=== PATIENT | male | born 1955 | race Caucasian/White ===

== ENCOUNTER 2020-05-26 09:17 | Outpatient (RCR) | payer BC, SELFPAY ==
[2020-05-26 09:35] VITALS: BP 155/80; PULSE 136; TEMP 36.2
--- NOTE | 2020-05-26 11:55 | HP.PCM_ITS ---
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 He presents today with his sister. They report that they are seeking a second opinion consult for the management of the patient's left ankle ulcer. The patient has a past medical history significant for type 2 diabetes mellitus and hypertension. His primary care provider is Dr. Rudd at [facility]. On January 07, 2020 [facility] for evaluation of left foot infection. 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 His surgery was performed by Dr. Caba (podiatry at [facility]). He was seen by infectious disease (also at [facility]) and was placed on IV antibiotics from January 09, 2020 until February 20, 2020. He has since been seeing Dr. Caba once a month for management of his left ankle ulcer. A wound VAC was initially applied to the left foot and ankle, however the patient did not tolerate this and experienced severe blistering and irritation of the skin. 2 of his 3 left ankle ulcerations have now closed, however a deep, tunneling ulcer of the left ankle persists. He has been receiving [facility] home health care 3 times a week, as well as assistance from his sister. He is receiving twice daily iodoform packing to the left ankle. He reports variable amounts of drainage from the ankle. At times the ankle has large amounts of bloody drainage, and at other times the drainage is mild and serosanguineous. He denies any purulent drainage or malodorous drainage. He denies any fever or chills. He denies any nausea, vomiting, diarrhea or decreased appetite. An ankle x-ray report from April 19, 2020 was reviewed which stated concern for osteomyelitis. The patient reports Dr. Caba had discussed reinitiation of IV antibiotics, but this was to be assessed at his next appointment in June. A culture was collected last week by Dr. Caba; results are not available and patient has not yet received results of culture. The patient states his last antibiotic course was Augmentin, which was last taken on May 15, 2020. Past Medical History Past Medical History: Chronic Problems Chronic osteomyelitis of left ankle with draining sinus (Chronic) Chronic ulcer of left ankle (Chronic) History of gangrene (Chronic) Home Medications: Ambulatory Orders Medication Instructions Recorded Aspirin 81 mg DAILY 05/26/20 Vit C/Ascorb Sod/Multivit-Min 500 mg BID 05/26/20 Review of Systems Constitutional: Denies: Chills, Fever Eyes: Denies: Drainage, Redness HEENT: Denies: Difficulty Hearing Cardiovascular: Denies: Chest Pain, Palpitations Respiratory: Denies: Cough, Shortness of Breath Gastrointestinal: Denies: Diarrhea, Nausea, Vomiting Musculoskeletal: Reports: Joint swelling - Left ankle. Denies: Foot Pain, Joint Tenderness Skin: Reports: Wounds - Left ankle Neurological: Denies: Slurred speech, Focal weakness, Incoordination Hematologic/ Lymphatic: Denies: Petechiae, Purpura - Physical Exam Vital Signs Temp Pulse BP 97.1 F L 136 H 155/80 H 05/26/20 09:35 05/26/20 09:35 05/26/20 09:35 General: Alert, Cooperative, No apparent distress HEENT: Atraumatic, EOMI, Normocephalic Oral: Moist Mucosa Neck: Supple, Trachea Midline Lungs: Clear to auscultation, Normal air movement, No rhonchi, No wheeze, No rales Cardiovascular: Regular Rhythm, Normal S1, Normal S2, No murmurs, Tachycardic - HR 110 on auscultation Abdomen: Bowel Sounds Present, Soft, Non Tender Extremities: No clubbing, No cyanosis, Edema - Circumferential swelling of left ankle, Peripheral Pulses Normal, - - Surgical absence of second and third toes of the left foot. Skin: Ulcer/ Wound - Tunneling ulcer of the left ankle, stage undetermined. There is a small amount of nonodorous, serous drainage from the ulcer. There is periulcer excoriation and swelling; no warmth or tenderness to palpation. Wound Measurements and Assessment - Nurse 1 - General Ulcer Measurement Start: 05/26/20 09:31 Freq: Status: Active Protocol: Activity Type Activity Date Activity User E-Sign Co-Sign Detail Recorded Client Recorded Date Recorded By Document 05/26/20 09:35 GO [id number] 05/26/20 09:59 KR 05/26/20 09:35 Wound Center Nurse 1 [Ulcer Assessment] #1 LEFT ANKLE -Current Size (cm) - Length 1 -Current Size (cm) - Width 1.1 -Current Size (cm) - Depth 2.7 -Total Square Cm 1.1 -Tunneling Position (O'clock) 11 -Tunneling Distance (cm) 4 -Exudate Amt Medium -Exudate Type Serosanguineous -Wound Margin Distinct, Outline Attached -Granulation Amt Medium (34-66%) -Granulation Quality Red -Necrosis Amt Medium (34-66%) -Necrotic Tissue Type Adherent Slough -Texture (Coty-wound Skin Appearance) Assessed, Scarring -Moisture (Coty-wound Skin Appearance No Abnormality, ) Assessed -Color (Coty-wound Skin Appearance) No Abnormality, Assessed -Temperature (Coty-wound Skin No Abnormality Appearance) (Pt Warm) -Tenderness on Palpation (Coty-wound No Skin Appearance) -Ulcer Cleansing Rinsed/ Irrigated with Saline -Foul Odor after Cleansing No -Anesthetic Used 4% Lidocaine Solution,5% Lidocaine Gel [Edema Assessment] -Right Calf (cm) 36 -Right Ankle (cm) 21 -Left Calf (cm) 36 -Left Ankle (cm) 24 - Nurse 3 - General Ulcer D/C NN Start: 05/26/20 09:31 Freq: Status: Active Protocol: Activity Type Activity Date Activity User E-Sign Co-Sign Detail Recorded Client Recorded Date Recorded By Document 05/26/20 11:27 GO [id number] 05/26/20 11:28 KR 05/26/20 11:27 Wound Care Nurse 3 [Wound Dressing] #1 LEFT ANKLE -Ulcer Cleansing Rinsed/ Irrigated with Saline -Foul Odor after Cleansing No -Primary Dressing Applied Other -Other Dressing packing -Primary Dressing Covered/Secured Dry Gauze,Dry with Gauze & Roll Gauze,Secured with Tape Pain Scale: 0-10 Numeric [Pain] -Is Patient Pain Free? Yes WC - Visit Discharge [Visit Discharge Information] -Discharge Condition Stable -Ambulatory Status Wheelchair -Transportation Private Auto -Accompanied by sister Musculoskeletal: No Tenderness to Palpation of Joints or Extremities - Left ankle Psych/Mental Status: Normal Affect, Appropriate Debridement Note Post-Debridement Measurements/Treatment WC - Nurse 3 - General Ulcer D/C NN Start: 05/26/20 09:31 Freq: Status: Active Protocol: Activity Type Activity Date Activity User E-Sign Co-Sign Detail Recorded Client Recorded Date Recorded By Document 05/26/20 11:27 OG [id number] 05/26/20 11:28 GO 05/26/20 11:27 Wound Care Nurse 3 #1 LEFT ANKLE -Ulcer Cleansing Rinsed/ Irrigated with Saline -Foul Odor after Cleansing No -Primary Dressing Applied Other -Other Dressing packing -Primary Dressing Covered/Secured with Dry Gauze,Dry Gauze & Roll Gauze,Secured with Tape Pain Scale: 0-10 Numeric Is Patient Pain Free? Yes WC - Visit Discharge Discharge Condition Stable Ambulatory Status Wheelchair Transportation Private Auto Accompanied by sister No debridement was completed today Assessment/Plan Active Problems Chronic osteomyelitis of left ankle with draining sinus (Chronic) Chronic ulcer of left ankle (Chronic) History of gangrene (Chronic) Assessment: See above Plan: Treatment options were discussed at length today with the patient. These include the followin. The wound healing center can assume management of the patient's left ankle ulcer, ordering supplies and providing superficial debridement to the ulcer opening. Wound care would likely include continuation of iodoform packing or the initiation of a snap VAC. 2. I do feel the patient may benefit from operative debridement of the left ankle, as it is difficult to determine the depth and severity of his left ankle wound, and sharp debridement would not be feasible in the wound healing clinic setting. 3. Initiation of hyperbaric oxygen therapy is also a consideration due to chronic osteomyelitis. The patient may pursue this option regardless of whether or not they choose to continue wound care with the [facility] wound healing center or with Dr. Caba. In any event, the patient's records will be requested from [facility], including his culture results, imaging studies, lab work, and consultations from Dr. Caba and infectious disease. Upon the review of these, I will contact the patient with any further recommendations. I also recommend that the patient keep scheduled follow-up with Dr. Caba for June 2020 to readdress their previous discussion regarding the possible need for IV antibiotics. The patient is unsure of how they would like to proceed at this t chris. They will consider these options and discuss other possibilities with Dr. Caba, and call the wound healing center to schedule a follow-up appointment if desired. Note: [employer] speech recognition java jsf developer software was used to create portions of this document. Sound-alike and misspelled words, as well as other java jsf developer errors may be contained in the documentation. Office Visits / Consults: [id number] OV L4 New
--- NOTE | 2020-06-07 11:31 | WC ---
06/07/20 Spoke with Carolynn from [facility] in regards to the prior authorization of HBO treatments for the patient. I was informed that no prior authorization was required for the codes G0277 or 18267. The reference number on the call was #[id number]
== END 2020-06-11 23:59 ==
LOC: WC 09:17
PROVIDERS: PCP Internal Medicine; Referring Provider Internal Medicine; Visit Provider Nurse Practitioner Family
DX: E11.621 Type 2 diabetes mellitus with foot ulcer (principal); L97.322 Non-pressure chronic ulcer of left ankle with fat layer exposed; M86.472 Chronic osteomyelitis with draining sinus, left ankle and foot; Z86.79 Personal history of other diseases of the circulatory system; I10 Essential (primary) hypertension; E11.69 Type 2 diabetes mellitus with other specified complication; M86.662 Other chronic osteomyelitis, left tibia and fibula
CPT/HCPCS: 99203; G0463

== ENCOUNTER → 2022-04-18 | Outpatient (CLI) | payer MEDICARE, SELFPAY ==
[2022-04-18 15:32] LABS: Absolute Lymphocyte Count 1.18 X10^3/uL (0.83-4.51); Absolute Neutrophil Count 5.4 X10^3/uL (2.0-7.7); Basophil# 0.02 X10^3/uL; Basophil% 0.3 % (0-1); Eosinophils% 2.8 % (0-5); Hematocrit 44.7 % (40-54); Hemoglobin 15.2 g/dL (13.0-16.5); Lymphocyte # 1.18 X10^3/ul (0.83-4.51); Lymphocyte % 16.4 % (19-41); Mean Corpuscular Hgb 31.3 pg (27.0-32.0); Monocyte# 0.39 X10^3/uL; Monocyte% 5.4 % (0-10); NRBC Flagged by Analyzer 0 % (0-5); Neutrophil # 5.35 X10^3/uL (2.7-7.7); Neutrophil % 74.5 % (47-70); Platelet Count 242 K/mm3 (150-450); RBC Distribution Width CV 12.1 % (11.6-14.6); RBC Distribution Width SD 41.2 fl (35.1-43.9); Red Blood Count 4.86 M/mm3 (4.6-6.2); White Blood Count 7.2 K/mm3 (4.4-11.0)
[2022-04-18 16:35] LABS: AST(SGOT) 15 U/L (15-37); Alanine Aminotransfer ALT/SGPT 28 U/L (16-61); Albumin, Serum 3.8 g/dL (3.2-5.0); Alkaline Phosphatase 66 U/L (45-117); Anion Gap 8 (5-15); BUN 27 mg/dL (7-18); BUN/Creat Ratio 26.2 RATIO (10-20); Calcium,Total 9.6 mg/dL (8.5-10.1); Chloride 107 mmol/L (98-107); Cholesterol 177 mg/dL (200); Creatinine, Serum 1.03 mg/dL (0.70-1.30); EST Glomerular Filtration Rate 77 mL/min (>60); Est Glom Filt Rate - Afr Amer 93 mL/min (>60); Globulin 3.9 g/dL (2.2-4.2); Glucose 110 mg/dL (74-106); Hemoglobin A1c 5.6 % (3.8-5.6); High Density Lipoprotein 38 mg/dL; PSA,Total- Diagnostic 0.34 ng/mL (0.0-4.0); Potassium 4.4 mmol/L (3.5-5.1); Protein, Total 7.7 g/dL (6.4-8.2); Sodium Level 140 mmol/L (136-145); Triglycerides 117 mg/dL; Very Low Density Lipoprotein 23 mg/dL (5-40)
[2022-04-18 16:44] LABS: Microalbumin:Creatinine Ratio 261.6 mg/g CRE (<30 mg/g CRE)
== END | disposition home or self-care (01) ==
LOC: BIMLAB 11:51
PROVIDERS: PCP Internal Medicine; Referring Provider Internal Medicine; Visit Provider Internal Medicine
DX: E11.51 Type 2 diabetes mellitus with diabetic peripheral angiopathy without gangrene (principal); R33.9 Retention of urine, unspecified
CPT/HCPCS: 36415; 80053; 80061; 82043; 82570; 83036; 84153; 85025

== ENCOUNTER → 2022-05-22 | Outpatient (CLI) | payer MEDICARE, SELFPAY ==
[2022-05-22 15:22] LABS: Anion Gap 8 (5-15); BUN 25 mg/dL (7-18); BUN/Creat Ratio 22.5 RATIO (10-20); Calcium,Total 9.7 mg/dL (8.5-10.1); Chloride 102 mmol/L (98-107); Creatinine, Serum 1.11 mg/dL (0.70-1.30); EST Glomerular Filtration Rate 70 mL/min (>60); Est Glom Filt Rate - Afr Amer 85 mL/min (>60); Glucose 110 mg/dL (74-106); Sodium Level 137 mmol/L (136-145)
== END | disposition home or self-care (01) ==
LOC: BIMLAB 11:58
PROVIDERS: PCP Internal Medicine; Referring Provider Internal Medicine; Visit Provider Internal Medicine
DX: I10 Essential (primary) hypertension (principal)
CPT/HCPCS: 36415; 80048

== ENCOUNTER → 2023-07-31 | Outpatient (CLI) | payer MEDICARE, SELFPAY ==
[2023-07-31 15:24] LABS: Absolute Lymphocyte Count 1.05 X10^3/uL (0.83-4.51); Absolute Neutrophil Count 6.6 X10^3/uL (2.0-7.7); Basophil# 0.04 X10^3/uL; Basophil% 0.5 % (0-1); Eosinophil# 0.19 X10^3/uL; Eosinophils% 2.2 % (0-5); Hemoglobin 12.9 g/dL (13.0-16.5); Lymphocyte # 1.05 X10^3/ul (0.83-4.51); Lymphocyte % 12.4 % (19-41); Mean Corp Hgb Conc 31.5 g/dL (32-36); Mean Corpuscular Hgb 29.1 pg (27.0-32.0); Mean Corpuscular Volume 92.3 fL (80-94); Mean Platelet Vol. 11.1 fl (6.2-12.0); Monocyte# 0.55 X10^3/uL; Monocyte% 6.5 % (0-10); NRBC Flagged by Analyzer 0 % (0-5); Neutrophil # 6.59 X10^3/uL (2.7-7.7); Neutrophil % 77.8 % (47-70); Platelet Count 233 K/mm3 (150-450); RBC Distribution Width CV 12.7 % (11.6-14.6); RBC Distribution Width SD 43.1 fl (35.1-43.9); Red Blood Count 4.44 M/mm3 (4.6-6.2); White Blood Count 8.5 K/mm3 (4.4-11.0)
[2023-07-31 16:09] LABS: ALB/GLOB Ratio 0.9 RATIO (0.9-2.4); AST(SGOT) 19 U/L (15-37); Alanine Aminotransfer ALT/SGPT 26 U/L (16-61); Albumin, Serum 3.5 g/dL (3.2-5.0); Alkaline Phosphatase 88 U/L (45-117); Anion Gap 7 (5-15); BUN 52 mg/dL (7-18); BUN/Creat Ratio 36.9 RATIO (10-20); Calcium,Total 9.4 mg/dL (8.5-10.1); Chloride 109 mmol/L (98-107); Cholesterol 150 mg/dL (200); Creatinine, Serum 1.41 mg/dL (0.70-1.30); EST Glomerular Filtration Rate 53 mL/min (>60); Est Glom Filt Rate - Afr Amer 64 mL/min (>60); Globulin 3.9 g/dL (2.2-4.2); Glucose 118 mg/dL (74-106); High Density Lipoprotein 39 mg/dL; PSA,Total- Diagnostic 0.25 ng/mL (0.0-4.0); Potassium 4.7 mmol/L (3.5-5.1); Protein, Total 7.4 g/dL (6.4-8.2); Sodium Level 139 mmol/L (136-145); Triglycerides 82 mg/dL; Very Low Density Lipoprotein 16 mg/dL (5-40)
[2023-07-31 16:31] LABS: Microalbumin,Random Urine 88.9 mg/L (NO RANGE EST.); Microalbumin:Creatinine Ratio 140.9 mg/g CRE (<30 mg/g CRE)
== END | disposition home or self-care (01) ==
LOC: BIMLAB 11:58
PROVIDERS: PCP Internal Medicine; Visit Provider Internal Medicine
DX: I10 Essential (primary) hypertension (principal); E11.51 Type 2 diabetes mellitus with diabetic peripheral angiopathy without gangrene; R33.9 Retention of urine, unspecified
CPT/HCPCS: 36415; 80053; 80061; 82043; 82570; 84153; 85025

== ENCOUNTER → 2025-01-06 | Outpatient (CLI) | payer MEDICARE, SELFPAY ==
[2025-01-06 12:10] LABS: Hematocrit 40.8 % (40-54); Hemoglobin 13.8 g/dL (13.0-16.5); Immature Granulocytes Count 0.070 X10^3/uL (0.0-0.0); Mean Corp Hgb Conc 33.8 g/dL (32-36); Mean Corpuscular Volume 90.5 fL (80-94); Mean Platelet Vol. 11.9 fl (6.2-12.0); NRBC Flagged by Analyzer 0 % (0-5); Platelet Count 214 K/mm3 (150-450); RBC Distribution Width CV 12.2 % (11.6-14.6); RBC Distribution Width SD 40.5 fl (35.1-43.9); Red Blood Count 4.51 M/mm3 (4.6-6.2); White Blood Count 7.8 K/mm3 (4.4-11.0)
[2025-01-06 12:41] LABS: Creatinine, Urine (random) 86.40 mg/dL (39.00-259.00); Microalbumin,Random Urine 248.0 mg/L (<20 mg/L)
[2025-01-06 13:18] LABS: AST(SGOT) 19 U/L (<=37); Alanine Aminotransfer ALT/SGPT 18 U/L (<=46); Albumin, Serum 3.9 g/dL (3.4-4.8); Alkaline Phosphatase 88 U/L (40-129); Anion Gap 13 (5-15); BUN 34 mg/dL (4-19); BUN/Creat Ratio 29.1 RATIO (10-20); Calcium,Total 9.8 mg/dL (7.6-11.0); Carbon Dioxide 18.9 mmol/L (21.0-32.0); Chloride 108 mmol/L (98-108); Cholesterol 140 mg/dL (<=200); Globulin 3.8 g/dL (2.2-4.2); Glucose 120 mg/dL (70-99); Low Density Lipoprotein Calc. 85 mg/dL; PSA,Total- Diagnostic 0.18 ng/mL (0.00-4.00); Potassium 4.5 mmol/L (3.3-5.1); Triglycerides 127 mg/dL; Very Low Density Lipoprotein 25 mg/dL (5-40); cholesterol:hdl ratio screen 4.67
== END | disposition home or self-care (01) ==
LOC: LAB 11:07
PROVIDERS: PCP Internal Medicine; Referring Provider Internal Medicine; Visit Provider Internal Medicine
DX: I10 Essential (primary) hypertension (principal); E11.51 Type 2 diabetes mellitus with diabetic peripheral angiopathy without gangrene; R33.9 Retention of urine, unspecified
CPT/HCPCS: 36415; 80053; 80061; 82043; 82570; 84153; 85025